=== PATIENT | male | born 1965 | race Caucasian/White ===

== ENCOUNTER 2020-04-07 11:21 | Outpatient (CLI) | payer OTHER ==
[2020-04-07 11:50] VITALS: BP 158/90
--- NOTE | 2020-04-07 11:50 | SLEEP CARE CONSULTATION ---
Information from patient questionnaire entered by Eileen Ceballos. I have reviewed and concur with the information entered by Eileen Ceballos. This document represents the service I personally performed and the decisions made by me, Radha Bass ARNP. History of Present Illness Service Date and Time: 04/07/2020 1121 Reason for Visit: New patient, Previously diagnosed sleep apnea, sleep apnea on CPAP therapy Chief Complaint: reports: Snoring, Frequent awakenings at night, Other (headaches have increased over last 2 years; has had workup without any issue found) Date of Onset: 5 years Usual bedtime: 10:30pm Time it takes to fall asleep: 30 minutes Snores at night: Yes Observed to quit breathing while asleep: No Sleeps alone due to snoring: No Number of times waking at night: 3-5 Reasons for waking at night: reports: Snoring. denies: Choking, Gasping for air Toss, Turn, or Twitch while sleeping: Yes Recalls having dreams: Yes Usually gets out of bed at: 7 am Feels refreshed in the morning: No Morning headache: Yes Sleepy or fatigued during the day: Yes Ever fallen asleep while driving: No Takes day naps: No Dreams during day naps: No Prior sleep studies: Yes Year and Where: 2015 - [facility], [place], [place] Additional HPI information: VINH MCELROY was diagnosed to have mild, AHI 5.4, obstructive sleep apnea- hypopnea syndrome and comes in today for CPAP therapy establishment of care with our office. - Parasomnia Symptoms Ever been unable to move upon waking from sleep: No Walks in sleep: No Talks in sleep: No Ever acted out dreams in sleep: No Ever felt weak in the knees when startled or emotional: No Bothered by creepy, crawly, restless sensations in legs: No Problems with memory or concentration: Yes CPAP Compliance Data - Data Reviewed with Patient Average duration of nightly device use: 6.1 Compliance rate %: 28 (90 days) Current pressure setting (cmH2O): 10-14 Average residual AHI: 1.0 Central apnea: 0.5 Obstructive apnea: 0.4 Compliance data discussion: Nasal pillows mask He changes mask out once a month, last time on Mar 22 He gets DME supplies from [employer] and he is able to get them as needed. Subjective Missed days of use due to: reports: other (use of machine may be causing headaches) Patient concerns: reports: other (headache/head pressure on left side that lasts all day). denies: aerophagia, mask discomfort, air blowing in eyes, mask leak noise, nasal congestion, dry mouth, nose, throat, epistaxis Observed to snore while using device: No Current pressure setting perceived as: too high On therapy, patient: reports: sleeping better, awakening more refreshed, being more awake and alert during the day, more rested overall, other (getting headaches/head pressure with CPAP use). denies: drowsiness while driving Initial [place] Sleepiness Scale score: 5 (in 2020) Past Medical History Past Medical History: reports: Other (headache, tinnitus). denies: Hypertension, Congestive Heart Failure, Diabetes, Coronary Heart Disease, Arrythmia, Anemia, Anxiety, Impotence, Depression, Mood disorder, GERD, Attention deficit Social History The patient's occupation is a [employer]. Patient is and lives in [place]. Have you smoked in the past 12 months: No Alcohol use: Yes Alcohol amount and frequency: 2-3 drinks weekly Caffeine use: Yes Caffeine amount and frequency: 1-2 cups daily Family History Family history of sleep disordered breathing: No Allergies and Home Medications Drug allergies reviewed: Yes (NKDA) Home medication list reviewed: Yes (Aleve for headaches) Review of Systems Weight gain over past 5 years: 10 Cardiovascular: reports: high blood pressure (situational). denies: palpitations, chest pain, irregular heart rate or pulse Respiratory: denies: shortness of breath, chronic cough Gastrointestinal: denies: heartburn, difficulty swallowing Urinary: denies: impotence Neurological: reports: headaches. denies: seizure, head trauma, speech dysfunction, fainting or unconsciousness Psychiatric: denies: Attention Deficit Hyperactivity, anxiety, depression, mood disorder, claustrophobia Ear/Nose/Throat: reports: dry mouth/throat, wisdom teeth removed. denies: nasal congestion, sinus problems, nose bleeds, injury to nose, tonsillectomy Endocrine: reports: excessive thirst Musculoskeletal: reports: joint pain, back pain Immunologic: reports: other (tinnitus). denies: allergies to food or environment Physical Exam Blood Pressure: 158/90 (no symptoms, normally high at office) Cuff size: wrist Heart Rate: 57 O2 Saturation: 99 Height: 5 ft 7 in Weight: 196 lb Body Mass Index: 30.7 BMI Classification: Obese Neck circumference: 17.25 (inches) HEENT: No craniofacial malformation Nostrils: patent to airflow Turbinates: swollen Septum: midline Mouth and throat: narrow oropharynx Hard palate: arched Uvula visualization: 50% Mallampati Class II Tongue: enlarged in size with teeth clark on lateral edges Tonsils: 1+ Chin and jaw: normal size and position Neck: normal w/o lymphadenopathy or thyromegaly Heart: regular rate and rhythm Lungs: clear bilaterally Impression and Plan 1. Obstructive Sleep Apnea-Hypopnea Syndrome, mild, with poor treatment compliance and good apnea control. On CPAP therapy, the patient has better sleep quality and is more rested overall. He has been having headaches described as head pressure for the last 2 years. He states he has noted having headaches on days after using his CPAP machine and not on days he has not used it the night before. He was unable to get to his last sleep care office and has thus transferred his care here. His median pressure is 10.5 cm H2O, 95% is 11.8 cm H2O and max at 12.6 cm H2O. His residual apnea index is 1.0, so I think we can reduce pressure and still have good apnea control. This pressure reduction may help to reduce headache/head pressure he has been experiencing for the last 2 years with a negative workup so far with PCP and neurology. He does have an elevated blood pressure today without a diagnosis of HTN. He states he has been getting a systolic of 160 on a regular basis at home. He was encouraged to visit with his PCP about this and elevated blood pressure can cause headaches. He has a followup appointment in the next week with his PCP. Patient's apnea severity and rationale for treatment to reduce apnea, improve sleep quality and reduce cardiovascular and cerebrovascular events was reviewed. * Change auto CPAP pressure to 8-10 cmH2O * Follow up with PCP for elevated blood pressure * Notify me if snoring with mask or feeling that the pressure is too much or too little * Attempt to lose weight * Call this office if any problems using CPAP * Return for follow up in 1-2 months , or sooner if concerns arise Counseling Topics: Spare mask, Weight loss health impact Visit Type: In Office Time Spent with Patient (minutes): 42 Provider Statement: I spent 100% of the Face to Face Visit with the patient with greater than 50% spent counseling the patient and coordination of care.
== END 2020-04-07 11:22 | disposition home or self-care (01) ==
LOC: SC 11:21
PROVIDERS: ATTEND Nurse Practitioner Family
DX: G47.33 Obstructive sleep apnea (adult) (pediatric) (principal); E66.9 Obesity, unspecified; Z68.30 Body mass index [BMI] 30.0-30.9, adult
CPT/HCPCS: 99203; 99212

== ENCOUNTER 2020-05-19 09:56 | Outpatient (CLI) | payer OTHER ==
--- NOTE | 2020-05-19 10:40 | SLEEP CARE CONSULTATION ---
Information from patient questionnaire entered by Eileen Ceballos. I have reviewed and concur with the information entered by Eileen Ceballos. This document represents the service I personally performed and the decisions made by , Radha Bass ARNP. History of Present Illness Service Date and Time: 05/19/2020 0956 Previous diagnosis: Mild, Obstructive Sleep Apnea-Hypopnea Syndrome AHI: 5.4 (in 2014) Reason for follow up: other (6 week with pressure change) Equipment type: CPAP Equipment obtained from: [employer] (getting supplies as needed) Mask style: Nasal pillows Backup mask available: Yes (old mask) Last cushion change: last week Prior sleep studies: Yes Year and Where: [address] [place] [address] Sleep Lab Type of Sleep Study: Polysomnography HPI additional information: VINH MCELROY was diagnosed to have mild, AHI 5.4, obstructive sleep apnea- hypopnea syndrome and returned today for CPAP therapy 6 week follow-up. CPAP Compliance Data - Data Reviewed with Patient Average duration of nightly device use: 6 hr 55 min Compliance rate %: 70 Current pressure setting (cmH2O): 8-10 Average residual AHI: 0.8 Central apnea: 0.3 Obstructive apnea: 0.5 Average large leak: 1.4 L/min Subjective Missed days of use due to: reports: travel, other (headaches; falls asleep without) Patient concerns: reports: dry mouth, nose, throat. denies: aerophagia, mask discomfort, air blowing in eyes, mask leak noise, condensation in mask/hose, nasal congestion, epistaxis, other (dry nose, once in a while ) Observed to snore while using device: No Current pressure setting perceived as: comfortable On therapy, patient: reports: sleeping better, awakening more refreshed, being more awake and alert during the day, more rested overall. denies: drowsiness while driving Initial [place] Sleepiness Scale score: 5 (in 2019) Current [place] Sleepiness Scale score: 3 Allergies and Home Medications Drug allergies reviewed: Yes (NKDA) Home medication list reviewed: Yes (Lisinopril 10 mg) Review of Systems Review of systems same as previous: No (increased medication for blood pressure and headaches) Physical Exam Heart Rate: 58 O2 Saturation: 98 Height: 5 ft 7 in Weight: 194 lb Body Mass Index: 30.4 BMI Classification: Obese Impression and Plan 1. Obstructive Sleep Apnea-Hypopnea Syndrome, mild, with good treatment compliance and good apnea control. On CPAP therapy, the patient has better sleep quality and is more rested overall. He has had a reduction in his headaches with the addition of Lisinopril in the last week. He is happy with the changes made and pressure is feeling comfortable. He has had a little nasal soreness and dryness with the nasal pillows mask that only last a day or two. Nasal dryness can be reduced with increasing the CPAP humidity as shown on sample device and the heated hose can be increased if condensation. In addition, I gave the patient a samples of Joseph Ease nasal cream to be used 4 times a day for 7-10 days and then as needed. Printed information given about the product and how to obtain more. Patient's apnea severity and rationale for treatment to reduce apnea, improve sleep quality and reduce cardiovascular and cerebrovascular events was reviewed. * Continue auto CPAP pressure at 8-10 cmH2O * Notify me if snoring with mask or feeling that the pressure is too much or too little * Attempt to lose weight * Call this office if any problems using CPAP * Return for follow up in 1 year , or sooner if concerns arise Counseling Topics: Spare mask, Weight loss health impact Visit Type: In Office Time Spent with Patient (minutes): 15 Provider Statement: I spent 100% of the Face to Face Visit with the patient with greater than 50% spent counseling the patient and coordination of care.
== END 2020-05-19 09:57 | disposition home or self-care (01) ==
LOC: SC 09:56
PROVIDERS: ATTEND Nurse Practitioner Family
DX: G47.33 Obstructive sleep apnea (adult) (pediatric) (principal); E66.9 Obesity, unspecified; Z68.30 Body mass index [BMI] 30.0-30.9, adult
CPT/HCPCS: 99212; 99213

== ENCOUNTER 2022-08-02 15:20 | Outpatient (CLI) | payer OTHER ==
[2022-08-02 16:04] VITALS: BP 102/64
--- NOTE | 2022-08-02 16:04 | SLEEP CARE CONSULTATION ---
Information from patient questionnaire entered by Jacquie Montanez. I have reviewed and concur with the information entered by Jacquie Montanez. This document represents the service I personally performed and the decisions made by me, Radha Bass ARNP. History of Present Illness Service Date and Time: 08/02/2022 1520 Previous diagnosis: Mild, Obstructive Sleep Apnea-Hypopnea Syndrome AHI: 5.4 (in 2014) Reason for follow up: annual (LAST SEEN 04/2020) Equipment type: CPAP (Airsense 10, s/u 01/2015; SD CARD NEEDED FOR DOWNLOADS AND PRESSURE CHANGES) Equipment obtained from: [employer] (getting supplies as needed) Mask style: Nasal pillows Backup mask available: Yes (old mask) Last cushion change: 2 weeks Prior sleep studies: Yes Year and Where: [facility] Type of Sleep Study: Polysomnography HPI additional information: VINH MCELROY was diagnosed to have mild, AHI 5.4, obstructive sleep apnea- hypopnea syndrome and returned today for CPAP therapy annual follow-up. Sleep Study - Results Type of Sleep Study: Polysomnography Prior sleep studies: Yes Year and Where: [facility] CPAP Compliance Data - Data Reviewed with Patient Average duration of nightly device use: 6 hours 40 minutes Compliance rate %: 62 (119/180 days used) Current pressure setting (cmH2O): 8-10 Average residual AHI: 1.1 Central apnea: 0.4 Obstructive apnea: 0.6 Average large leak: 0.0 Subjective Missed days of use due to: reports: illness (covid last 2 weeks), travel (does not take it with him) Patient concerns: reports: dry mouth, nose, throat. denies: aerophagia, mask discomfort, air blowing in eyes, mask leak noise, condensation in mask/hose, nasal congestion, epistaxis Observed to snore while using device: No Current pressure setting perceived as: comfortable On therapy, patient: denies: sleeping better, more rested overall, drowsiness while driving Initial [place] Sleepiness Scale score: 5 (in 2019) Current [place] Sleepiness Scale score: 6 (08/02/22) Allergies and Home Medications Known drug allergies: No Drug allergies reviewed: Yes Home medication list reviewed: Yes (Lisinopril 10 mg) Review of Systems Review of systems same as previous: No (Right arm pain (since late Apr) being evaluated; just got over Covid) Physical Exam Vital signs obtained and entered by: JACQUIE Almanza MA Blood Pressure: 102/64 (LEFT ARM) Cuff size: regular Heart Rate: 88 O2 Saturation: 96 Height: 5 ft 7 in Weight: 193 lb Body Mass Index: 30.2 BMI Classification: Obese Impression and Plan 1. Obstructive Sleep Apnea-Hypopnea Syndrome, mild, with good treatment compliance and good apnea control. The patients CPAP is over 5 years old and of reasonable use. Patient states he just got over COVID, feeling mostly himself yesterday. He still has some fatigue he is dealing with since he got sick. He states when he was ill with COVID he was unable to use his mask sometimes because of the nasal congestion. He also does not take or wear his CPAP when he is away for 1 to 2-day business trips. I encouraged him to try to take his CPAP with him to increase his compliance. He voiced understanding. His [employer]Med Airsense 10 was last updated in 2015. Thus, the CPAP will be updated. The new CPAPs also have a better humidity system which could assist control of patients dryness symptoms. A DWO prescription will be made. Compliance guidelines for new device and follow up discussed. Patient's apnea severity and rationale for treatment to reduce apnea, improve sleep quality and reduce cardiovascular and cerebrovascular events was reviewed. I also reviewed the benefit of consistent device use of CPAP for headaches. 2. Obesity, unspecified. Currently patients BMI is 30.2. Obesity increases the risk of apnea, CPAP pressure requirements and overall health risks especially cardiovascular and diabetes. Thus patient is advised to lose weight. The patient's CPAP pressure range should accommodate some weight loss. Symptoms to report for additional pressure adjustment discussed. * Continue auto CPAP pressure at 8-10 cmH2O * Update machine * Update supplies * Notify me if snoring with mask or feeling that the pressure is too much or too little * Attempt to lose weight * Call this office if any problems using CPAP * Return for follow up one month after obtains new device, or sooner if concerns arise Counseling Topics: Spare mask, Weight loss health impact Visit Type: In Office Time Spent with Patient (minutes): 20 Provider Statement: I spent 100% of the Face to Face Visit with the patient with greater than 50% spent counseling the patient and coordination of care.
== END 2022-08-02 15:21 | disposition home or self-care (01) ==
LOC: SC 15:20
PROVIDERS: ATTEND Nurse Practitioner Family
DX: G47.33 Obstructive sleep apnea (adult) (pediatric) (principal); E66.9 Obesity, unspecified; Z68.30 Body mass index [BMI] 30.0-30.9, adult
CPT/HCPCS: 99212; 99213

== ENCOUNTER 2022-12-15 14:46 | Outpatient (CLI) | payer OTHER ==
--- NOTE | 2022-12-15 15:05 | Sleep Patient Instructions ---
Sleep Center Visit Summary - Patient Visit Information Reason for Visit: First Compliance followup with new device for PAP therapy - Patient Instructions Additional Instructions: You were here for follow up of CPAP therapy. You will be continued on CPAP therapy with pressure at 8-10 cmH2O. You should follow up with sleep care in 12 months. You may contact us sooner for any questions or concerns. - Clinic Information Contact: [facility] [address] [place] [address] [email or web address] T: [phone]
--- NOTE | 2022-12-15 15:08 | SLEEP CARE CONSULTATION ---
Information from patient questionnaire entered by Jacquie Montanez. I have reviewed and concur with the information entered by Jacquie Montanez. This document represents the service I personally performed and the decisions made by , Radha Bass ARNP. History of Present Illness Service Date and Time: 12/15/2022 1446 Previous diagnosis: Mild, Obstructive Sleep Apnea-Hypopnea Syndrome AHI: 5.4 (in 2014) Reason for follow up: first compliance after device update Equipment type: CPAP (RESMED Airsense 11, s/u 08/2022) Equipment obtained from: [employer] (getting supplies as needed) Mask style: Nasal pillows Backup mask available: Yes (old mask) Last cushion change: last weekend Prior sleep studies: Yes Year and Where: [facility] Type of Sleep Study: Polysomnography HPI additional information: VINH MCELROY was diagnosed to have mild, AHI 5.4, obstructive sleep apnea- hypopnea syndrome and returned today for CPAP therapy first compliance after updating device follow-up. Sleep Study - Results Type of Sleep Study: Polysomnography Prior sleep studies: Yes Year and Where: [facility] CPAP Compliance Data - Data Reviewed with Patient Average duration of nightly device use: 5 hours 51 minutes Compliance rate %: 77 (11/12/22-12/11/22; days used) Current pressure setting (cmH2O): 8-10 Average residual AHI: 0.8 Central apnea: 0.3 Obstructive apnea: 0.5 Hypopnea: 0 Average large leak: 0.1 L/min Subjective Patient concerns: reports: dry mouth, nose, throat (dry nose, using vaseline). denies: aerophagia, mask discomfort, air blowing in eyes, mask leak noise, condensation in mask/hose, nasal congestion, epistaxis Observed to snore while using device: No Current pressure setting perceived as: comfortable On therapy, patient: reports: sleeping better, awakening more refreshed, being more awake and alert during the day, more rested overall. denies: drowsiness while driving Initial [place] Sleepiness Scale score: 5 (in 2019) Current [place] Sleepiness Scale score: 7 (12/15/22) Allergies and Home Medications Known drug allergies: No Drug allergies reviewed: Yes Home medication list reviewed: Yes (no changes) Allergy and home medication list: Allergies No Known Drug Allergies Allergy (Verified 12/14/22 13:53) Review of Systems Review of systems same as previous: Yes (12/19/22 Right shoulder surgery) Physical Exam Vital signs obtained and entered by: JACQUIE Almanza MA Blood Pressure: 126/74 (LEFT ARM) Cuff size: regular Heart Rate: 79 O2 Saturation: 96 Height: 5 ft 7 in Weight: 194 lb Body Mass Index: 30.4 BMI Classification: Obese Impression and Plan 1. Obstructive Sleep Apnea-Hypopnea Syndrome, mild, with good treatment compliance and good apnea control. On CPAP therapy, the patient has better sleep quality and is more rested overall. Patient has significant improvement of their sleep apnea and is satisfied with current CPAP therapy. He gets a little nose dryness on edge of nare. He has been using Vaseline on his nose with good improvement of the dryness. Patient's apnea severity and rationale for treatment to reduce apnea, improve sleep quality and reduce cardiovascular and cerebrovascular events was reviewed. I also reviewed the benefit of consistent device use of CPAP for headaches. 2. Obesity, unspecified. Currently patients BMI is 30.4. Obesity increases the risk of apnea, CPAP pressure requirements and overall health risks especially cardiovascular and diabetes. Thus patient is advised to lose weight. * Continue auto CPAP pressure at 8-10 cmH2O * Notify me if snoring with mask or feeling that the pressure is too much or too little * Attempt to lose weight * Call this office if any problems using CPAP * Return for follow up in 1 year, or sooner if concerns arise Counseling Topics: Spare mask, Weight loss health impact Visit Type: In Office Time Spent with Patient (minutes): 20 Provider Statement: I spent 100% of the Face to Face Visit with the patient with greater than 50% spent counseling the patient and coordination of care.
[2022-12-15 15:16] VITALS: BP 126/74
== END 2022-12-15 14:47 | disposition home or self-care (01) ==
LOC: SC 14:46
PROVIDERS: ATTEND Nurse Practitioner Family
DX: G47.33 Obstructive sleep apnea (adult) (pediatric) (principal); E66.9 Obesity, unspecified; Z68.30 Body mass index [BMI] 30.0-30.9, adult
CPT/HCPCS: 99212; 99213

== ENCOUNTER 2023-12-15 14:56 | Outpatient (CLI) | payer OTHER ==
--- NOTE | 2023-12-15 15:22 | Sleep Patient Instructions ---
Sleep Center Visit Summary - Patient Visit Information Reason for Visit: Annual follow-up - Patient Instructions Additional Instructions: You will continue with CPAP therapy with pressure set at 8-10 cmH2O. A supply prescription will be updated with your DME. Please follow up with the sleep care office in 1 year. - Clinic Information Contact: [facility] [address] [place] [address] [email or web address] T: [phone]
--- NOTE | 2023-12-15 15:31 | SLEEP CARE CONSULTATION ---
Information from patient questionnaire entered by Jacquie Montanez. I have reviewed and concur with the information entered by Jacquie Montanez. This document represents the service I personally performed and the decisions made by , Radha Bass ARNP. History of Present Illness Service Date and Time: 12/15/2023 1456 Previous diagnosis: Mild, Obstructive Sleep Apnea-Hypopnea Syndrome AHI: 5.4 (in 2014) Reason for follow up: annual (LAST SEEN 11/2022) Equipment type: CPAP (RESMED Airsense 11, s/u 08/2022) Equipment obtained from: [email or web address] (getting supplies as needed) Mask style: Nasal pillows Backup mask available: Yes Last cushion change: tonight Prior sleep studies: Yes Year and Where: 2015 - [facility] Type of Sleep Study: Polysomnography HPI additional information: VINH MCELROY was diagnosed to have mild, AHI 5.4, obstructive sleep apnea- hypopnea syndrome and returned today for CPAP therapy annual follow-up. Sleep Study - Results Type of Sleep Study: Polysomnography Prior sleep studies: Yes Year and Where: 2015 - [facility] CPAP Compliance Data - Data Reviewed with Patient Average duration of nightly device use: 7 hours 9 mins Compliance rate %: 84 (05/22/2023-09/03/2023) Current pressure setting (cmH2O): 8-10 Average residual AHI: 0.6 Central apnea: 0.3 Obstructive apnea: 0.3 Hypopnea: 0 Average large leak: 0.2 L/min Compliance data discussion: He had to have chemotherapy and radiation for a tongue cancer treatment. He was unable to use his CPAP during healing and when vomiting with his treatments. He has resumed using his CPAP in the last week prior to his appointment. Subjective Missed days of use due to: reports: illness (radiation for cancer on tongue) Patient concerns: reports: mask discomfort, dry mouth, nose, throat. denies: aerophagia, air blowing in eyes, mask leak noise, condensation in mask/hose, nasal congestion, epistaxis Observed to snore while using device: No Current pressure setting perceived as: comfortable On therapy, patient: reports: sleeping better, awakening more refreshed, being more awake and alert during the day, more rested overall. denies: drowsiness while driving Initial [place] Sleepiness Scale score: 5 (in 2019) Current [place] Sleepiness Scale score: 10 (12/15/23) Allergies and Home Medications Known drug allergies: No Drug allergies reviewed: Yes Home medication list reviewed: Yes (no changes) Allergy and home medication list: Allergies No Known Drug Allergies Allergy (Verified 12/15/23 14:59) Review of Systems Review of systems same as previous: No (SQUAMOUS CELL CARCINOMA at base of tongue) Physical Exam Vital signs obtained and entered by: JACQUIE Almanza MA Blood Pressure: 109/76 (RIGHT ARM) Cuff size: regular Heart Rate: 94 O2 Saturation: 98 Height: 5 ft 7 in Weight: 171 lb 9.6 oz Weight change since last visit: 23 lb loss Body Mass Index: 26.9 BMI Classification: Overweight Impression and Plan 1. Obstructive Sleep Apnea-Hypopnea Syndrome, mild, with fair treatment comp liance and good apnea control. On CPAP therapy, the patient has better sleep quality and is more rested overall. He was diagnosed with squamous cell carcinoma of the tongue. He has gone through chemotherapy and radiation treatments for 7 weeks. He is waiting for a new scan in December to see how well the treatment has gone. During the time that he was healing from open sores in the back of his throat he could not use his machine due to nausea, vomiting and oral dryness. He is now using his machine again in the last week and tolerating it well. He has significant improvement of his sleep apnea and is satisfied with his CPAP therapy. He has had some dry mouth but has increased his humidity with improvement of his oral dryness. He has been getting some source inside his nose from his nasal pillows mask. He saw an [employer] and [employer] Brevida nasal pillows mask in the waiting room that he would like to try. I will add a mask fitting for this mask to his supply prescription. Patient's apnea severity and rationale for treatment to reduce apnea, improve sleep quality and reduce cardiovascular and cerebrovascular events was reviewed. 2. Overweight, unspecified. Currently patients BMI is 26.9. He has lost weight. Obesity increases the risk of apnea, CPAP pressure requirements and overall health risks especially cardiovascular and diabetes. Thus patient is advised to continue to try to lose weight. * Continue auto CPAP pressure at 8-10 cmH2O * Mask refitting for [employer] Brevida nasal pillows mask * Update supply prescription. * Notify me if snoring with mask or feeling that the pressure is too much or too little * Attempt to lose weight * Call this office if any problems using CPAP * Return for follow up in 12 months, or sooner if concerns arise Counseling Topics: Spare mask, Weight loss health impact Prescriptions: Device supplies Follow up with Sleep Care in: 1 year Visit Type: In Office Time Spent with Patient (minutes): 25 Provider Statement: I spent 100% of the Face to Face Visit with the patient with greater than 50% spent counseling the patient and coordination of care.
[2023-12-15 15:48] VITALS: BP 109/76; O2SAT 98
== END 2023-12-15 14:57 | disposition home or self-care (01) ==
LOC: SC 14:56
PROVIDERS: ATTEND Nurse Practitioner Family
DX: G47.33 Obstructive sleep apnea (adult) (pediatric) (principal); E66.3 Overweight; Z68.26 Body mass index [BMI] 26.0-26.9, adult
CPT/HCPCS: 99212; 99213